=== PATIENT | female | born 1955 | race Caucasian/White ===

== ENCOUNTER 2023-02-16 08:00 | Inpatient (IN) | payer OTHER, BC ==
[2023-02-10 11:30] VITALS: BMI 36.3
[2023-02-23] MEDS ORDERED: BUPIVACAINE HCL/PF 2.5 MG/ML - 30 ML VIAL IJ ONE (07:46)
[2023-02-23] MEDS ORDERED: BUPIVACAINE LIPOSOME/PF (EXPAREL) 266 MG/20 ML VIAL ONE (07:46)
[2023-02-23] MEDS ORDERED: BUPIVACAINE HCL/PF 0.5% (5MG/ML) 10 ML VIAL ONE (07:46)
[2023-02-23] MEDS ORDERED: ACETAMINOPHEN INJECTION 100 ML IVPB ONE (07:46)
[2023-02-23] MEDS ORDERED: MIDAZOLAM HCL 2 MG/2 ML SINGLE DOSE VIAL ONE ×4 (07:50→10:50)
[2023-02-23] MEDS ORDERED: PROPOFOL 20 ML ONE ×2 (07:51→09:00)
[2023-02-23] MEDS ORDERED: ONDANSETRON 4 MG/2 ML VIAL IVPUSH PRN (10:05)
[2023-02-23] MEDS ORDERED: ceFAZolin SODIUM 1 GM VIAL ONE (10:10)
[2023-02-23] MEDS ORDERED: TRANEXAMIC ACID 1000 MG/10 ML VIAL ONE (10:10)
[2023-02-23] MEDS ORDERED: VANCOMYCIN 1,000 MG VIAL (RESTRICTED TO ID ONLY) ONE (10:10)
[2023-02-23] MEDS ORDERED: LACTATED RINGERS SOLUTION 1,000 ML IV SCH ×2 (10:15→12:00)
[2023-02-23] MEDS ORDERED: ONDANSETRON 4 MG/2 ML VIAL ONE (11:40)
[2023-02-23] MEDS ORDERED: MAGNESIUM HYDROX 2400MG/30ML ORAL SUSPENSION 30 ML CUP PO PRN (11:52)
[2023-02-23] MEDS ORDERED: MAG HYDROX/AL HYDROX/SIMETH 30 ML UNIT-DOSE CUP PO PRN (11:52)
[2023-02-23] MEDS: ONDANSETRON 4 MG/2 ML VIAL IVPUSH PRN (12:12)
[2023-02-23] MEDS ORDERED: FENTANYL CITRATE/PF 50 MCG/ML VIAL ONE (12:16)
[2023-02-23] MEDS: oxyCODONE HCL 5 MG TABLET PO PRN ×3 (13:37→22:58)
[2023-02-23] MEDS: ACETAMINOPHEN 325 MG TABLET (FP) PO PRN (13:37)
[2023-02-23] MEDS ORDERED: HYDROmorphone HCl 2 MG/ML VIAL IVPB ONE (15:05)
[2023-02-23] MEDS: CEFAZOLIN SODIUM 2 GM in DEXTROSE 5%-WATER 100 ML IVPB SCH ×2 (17:13→23:00)
[2023-02-23] MEDS: ASPIRIN 81 MG CHEWABLE TABLETS PO SCH (21:14)
[2023-02-23] MEDS: CELECOXIB 200 MG CAPSULE PO SCH (21:14)
[2023-02-23] MEDS: SENNOSIDES/DOCUSATE COMBO (SENNA PLUS) TABLET (UD) PO SCH (21:14)
[2023-02-24] MEDS: ACETAMINOPHEN 325 MG TABLET (FP) PO PRN ×2 (04:35→20:10)
[2023-02-24] MEDS: oxyCODONE HCL 5 MG TABLET PO PRN ×4 (04:35→20:11)
[2023-02-24] MEDS: CEFAZOLIN SODIUM 2 GM in DEXTROSE 5%-WATER 100 ML IVPB SCH (04:37)
[2023-02-24 08:17] LABS: HEMATOCRIT 38.9 % (32.4-45.2); HEMOGLOBIN 13.1 G/dL (10.7-15.3); MCH 28.6 pg (25.7-33.7); MCHC 33.6 g/dl (32.0-36.0); MEAN CELL VOLUME 84.9 fl (80-96); MEAN PLT VOLUME 8.6 fl (7.5-11.1); PLATELET COUNT 183.1 10^3/uL (134-434); RBC 4.58 10^6/uL (3.60-5.2); RDW 13.6 % (11.6-15.6); WHITE BLOOD COUNT 11.7 10^3/uL (4.0-10.8)
[2023-02-24 08:44] LABS: CALCIUM 8.2 mg/dl (8.5-10); CREATININE 0.7 mg/dl (0.55-1.3); POTASSIUM 3.8 mmol/L (3.5-5.1)
[2023-02-24] MEDS: PANTOPRAZOLE 40 MG TABLET PO SCH (11:19)
[2023-02-24] MEDS: ASPIRIN 81 MG CHEWABLE TABLETS PO SCH ×2 (11:19→21:57)
[2023-02-24] MEDS: CELECOXIB 200 MG CAPSULE PO SCH ×2 (11:19→23:05)
[2023-02-24] MEDS: ONDANSETRON 4 MG/2 ML VIAL IVPUSH PRN (11:19)
[2023-02-24] MEDS: SENNOSIDES/DOCUSATE COMBO (SENNA PLUS) TABLET (UD) PO SCH ×2 (11:20→21:56)
[2023-02-24] MEDS: CELECOXIB 100 MG CAPSULE PO SCH (22:05)
[2023-02-25] MEDS: ACETAMINOPHEN 325 MG TABLET (FP) PO PRN (06:04)
[2023-02-25] MEDS: oxyCODONE HCL 5 MG TABLET PO PRN ×2 (06:04→12:25)
[2023-02-25 08:41] LABS: ALBUMIN 3.2 g/dl (3.4-5.0); CALCIUM 8.2 mg/dl (8.5-10); CREATININE 0.6 mg/dl (0.55-1.3); POTASSIUM 3.9 mmol/L (3.5-5.1); TOT PROT 5.8 g/dl (6.4-8.2)
[2023-02-25 09:05] VITALS: BP 133/60; PULSE 77; RESP 18; TEMP 98.2
[2023-02-25 09:33] LABS: HEMATOCRIT 34.8 % (32.4-45.2); MCH 28.5 pg (25.7-33.7); MCHC 34.6 g/dl (32.0-36.0); MEAN CELL VOLUME 82.5 fl (80-96); MEAN PLT VOLUME 8.6 fl (7.5-11.1); PLATELET COUNT 164 10^3/uL (134-434); RBC 4.22 M/mm3 (3.60-5.2); RDW 12.9 % (11.6-15.6); WHITE BLOOD COUNT 10.8 K/mm3 (4.0-10.0)
[2023-02-25] MEDS: SENNOSIDES/DOCUSATE COMBO (SENNA PLUS) TABLET (UD) PO SCH (12:26)
[2023-02-25] MEDS: ASPIRIN 81 MG CHEWABLE TABLETS PO SCH (12:26)
[2023-02-25] MEDS: PANTOPRAZOLE 40 MG TABLET PO SCH (12:27)
[2023-02-25] MEDS: CELECOXIB 100 MG CAPSULE PO SCH (12:27)
== END 2023-02-25 14:30 | DRG 470 ==
LOC: FM/S 02-23 06:18
PROVIDERS: ADMIT Orthopaedic Surgery Orthopaedic Surgery of the Spine; ATTEND Orthopaedic Surgery Orthopaedic Surgery of the Spine
PROC: 0SRC069 Replacement of Right Knee Joint with Oxidized Zirconium on Polyethylene Synthetic Substitute, Cemented, Open Approach (ICD-10-PCS; principal; 2023-02-23 09:21)
DX: M17.11 Unilateral primary osteoarthritis, right knee (principal); I10 Essential (primary) hypertension; E78.5 Hyperlipidemia, unspecified; E03.9 Hypothyroidism, unspecified; E66.9 Obesity, unspecified; Z68.36 Body mass index [BMI] 36.0-36.9, adult
CPT/HCPCS: 36415; 73560-TC-RT-FY; 80048; 80053; 85025; 85027; 88305-TC; 88311-TC; 94760; 97010-GP; 97116-GP; 97162-GP; C1713; C1776; C9803-CS; U0003; U0005